=== PATIENT | female | born 1995 | race African-American/Black ===

== ENCOUNTER 2017-04-29 23:31 | Emergency (ER) | payer OTHER ==
[2017-04-29 23:32] VITALS: BP 155/84; PULSE 62; RESP 18; TEMP 98.9; O2SAT 98
[2017-04-30] MEDS ORDERED: TETANUS/DIPHTHERIA TOXOID ADULT 0.5 ML VIAL IM ONE (00:45)
[2017-04-30] MEDS ORDERED: IBUPROFEN 600 MG TAB PO ONE (00:45)
[2017-04-30] MEDS ORDERED: BACITRACIN TOP OINT 15 GM TUBE TOPICAL ONE (00:45)
[2017-04-30] MEDS ORDERED: CEPH-460 PO (01:53)
[2017-04-30] MEDS ORDERED: IBUP-232 PO (01:53)
--- NOTE | 2017-04-30 01:53 | PD ---
HPI Chief Complaint: Burn Time Seen by Provider: 00:30 Travel History International Travel<30 days: No Contact w/Intl Traveler<30days: No Traveled to known affect area: No History of Present Illness HPI 21yo F with no PMH presents to the ED with c/o burn to left arm and right arm. Pt was working at [employer] and dropped hot beans on her left arm. Pt has second degree mendoza to volar aspect of left arm and a small area of first degree burn in right arm. Denies any other injury. States it happened at 8pm and she went home and cleaned it with water. Pt states pain is controlled. Denies any fever, chest pain, sob, n/v, abdominal pain, focal weakness or numbness. PFSH Past Medical History Medical History: Denies Significant Hx Diminished Hearing: No ?: Unknown LMP: 04/04/17 Past Surgical History Surgical History: No Previous Surgery Social History Alcohol Use: No Tobacco Use: No Substance Use: Yes (OCC MARIJUANA) Allergies-Medications (Allergen,Severity, Reaction): Coded Allergies: No Known Allergies (Unverified , 04/29/17) Reported Meds & Prescriptions Reported Meds & Active Scripts Active Keflex (Cephalexin) 500 Mg Capsule 500 Mg PO Q8H 7 Days Ibuprofen 600 Mg Tab 600 Mg PO Q8HR PRN Review of Systems Except as stated in HPI: all other systems reviewed are Neg Physical Exam Narrative GENERAL: 21yo F not in distress. SKIN: LUE: 9cm by 12cm erythema with blisters on volar aspect of left humerus. There is also 9cm by 12cm erythema on volar aspect of left elbow sparing antecubital space with a small amount of blister. RUE: +3cm by 1cm erythema right antecubital region. 9c by 3cm erythema right forearm. No blisters on right arm. HEAD: Atraumatic. Normocephalic. EYES: Pupils equal and round. No scleral icterus. No injection or drainage. ENT: No nasal bleeding or discharge. Mucous membranes pink and moist. NECK: Trachea midline. No JVD. CARDIOVASCULAR: Regular rate and rhythm. No murmur appreciated. RESPIRATORY: No accessory muscle use. Clear to auscultation. Breath sounds equal bilaterally. GASTROINTESTINAL: Abdomen soft, non-tender, nondistended. Hepatic and splenic margins not palpable. MUSCULOSKELETAL: Burn as noted on skin exam. Pt is able to bend elbow and sensation and muscle strength intact in both arms. Radial pulse 2+ in both hands. NEUROLOGICAL: Awake and alert. No obvious cranial nerve deficits. Motor grossly within normal limits. Normal speech. PSYCHIATRIC: Appropriate mood and affect; insight and judgment normal. Data Data Last Documented VS Vital Signs Date Time Temp Pulse Resp B/P Pulse Ox O2 Delivery O2 Flow Rate FiO2 04/30/17 00:10 18 04/29/17 23:32 98.9 62 155/84 98 Room Air Orders Tetanus/Diphtheria Tox Adult (Tetanus/Di (04/30/17 00:45) Ibuprofen (Motrin) (04/30/17 00:45) Bacitracin Oint (Baciguent Oint) (04/30/17 00:45) MDM Medical Decision Making Medical Screen Exam Complete: Yes Emergency Medical Condition: Yes Differential Diagnosis Second degree burn on left arm and first degree burn on right arm Narrative Course 21yo F with 2nd degree burn to left arm and first degree burn to right arm after dropping hot beans on her arms while working. Pt is well appearing and pain is controlled. Tetanus not up to date so pt given tetanus. Pt given ibuprofen and bacitracin applied to wound and covered with nonstick dressing. Pt instructed to follow up with plastics tomorrow. If pt is unable to follow up with plastics, will also give her [facility] burn center's number to follow up. Diagnosis Primary Impression: Second degree burn of arm Qualified Code: T22.20XA - Second degree burn of arm, initial encounter Referrals: Scarlett Mack MD call for appointment Second degree mendoza to left arm. Patient Instructions: General Instructions Departure Forms: Tests/Procedures Additional Instructions: Please follow up with Dr. Mack in plastics clinic tomorrow. If you are unable to follow up with plastics, then call [facility] burn center at [phone] to follow up with them. Return to the ED if symptoms worsen. Med/Other Pt SpecificInfo: Prescription(s) given Scripts Cephalexin (Keflex)500 Mg [id number] Mg PO Q8H 7 Days Ref 0 Prov:Astrid Hernandez DO 04/30/17 Ibuprofen 600 Mg [id number] Mg PO Q8HR PRN (PAIN) #20 TAB Ref 0 Prov:Astrid Hernandez DO 04/30/17 Disposition: 01 DISCHARGE HOME Condition: Stable Astrid Hernandez DO Apr 30, 2017 01:53
== END 2017-04-30 02:23 | disposition home or self-care (01) ==
LOC: NEPC 23:31
DX: T22.122A Burn of first degree of left elbow, initial encounter (principal); T22.232A Burn of second degree of left upper arm, initial encounter; T22.111A Burn of first degree of right forearm, initial encounter; Z23 Encounter for immunization; X10.1XXA Contact with hot food, initial encounter; Y93.G3 Activity, cooking and baking; Y92.511 Restaurant or cafe as the place of occurrence of the external cause; Y99.0 Civilian activity done for income or pay
CPT/HCPCS: 90471; 90714